=== PATIENT | female | born 1950 | race Caucasian/White ===

== ENCOUNTER 2017-11-14 21:03 | Observation (INO) | payer MEDICARE, OTHER ==
[~2017-11-14] VITALS: Ht 167.6 cm; Wt 52.0 kg
[~2017-11-14 21:03] MED LIST: NO MEDS; PATANOL0.1 % OP; PENICILLN VK500 MG OR; ULTRAM50 MG OR
--- NOTE | 2017-11-14 21:09 | NUR ---
PT TO ROOM PER EMS
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
[2017-11-14 21:30] LABS: HEMOGLOBIN 12.5 g/dl (12.0-16.0); IMMATURE GRANULOCYTES 0.4 % (0.0-1.0); MEAN CELL VOLUME 94.1 fL CALC (80.0-100.0); MEAN CORPUSCULAR HGB 31.8 pG CALC (26.0-32.0); MEAN CORPUSCULAR HGB CONC 33.8 g/L CALC (32.0-36.0); NEUT# 4.97 thou/uL (2.00-7.15); RED BLOOD COUNT 3.93 mill/uL (4.20-5.60); RED CELL DISTRI WIDTH 11.9 % (11.5-15.5)
[2017-11-14 21:47] LABS: PROTHROMBIN TIME 11.4 SECONDS (9.0-12.5)
[2017-11-14 21:53] LABS: ALBUMIN 3.5 g/dL (3.2-5.0); ALKALINE PHOSPHATASE 69 u/l (38-126); ANION GAP 13 (6-22 (CALC)); BILIRUBIN, TOTAL 0.3 mg/dL (0.0-1.4); BUN 25 mg/dL (8-23); BUN/CREATININE RATIO 30 (12-20 (CALC)); CARBON DIOXIDE 25 mmol/l (22-30); CHLORIDE 107 mmol/l (95-108); CREATININE 0.8 mg/dL (0.5-1.0); ETHYL ALCOHOL 0 mg/dl (0-30); GFR > 60 ML/MIN (>=60 (CALC)); GFR FOR AFR.AMER. > 60 ML/MIN (>=60 (CALC)); POTASSIUM 3.4 mmol/l (3.5-5.1); SGOT/AST 14 u/l (9-36); SGPT/ALT 28 u/l (11-66); SODIUM 141 mmol/l (137-146); TOTAL PROTEIN 5.9 g/dL (6.3-8.2)
[2017-11-14 22:04] LABS: MYOGLOBIN 25 ng/mL (0 - 62)
--- NOTE | 2017-11-14 22:56 | NUR ---
Pt resting comfortably at this time. blanket and pillow. Appears to be sleeping.
--- NOTE | 2017-11-15 00:20 | NUR ---
Pt transported to room 272.
--- NOTE | 2017-11-15 00:25 | NUR ---
PT ARRIVED TO THE FLOOR VIA STRETCHER WITH ER NURSE. PT AMBLUATED TO SCALE THEN TO BED. VITAL SIGNS OBTAINED. PT ORIENTED TO ROOM AND CALL LIGHT SYSTEM. PT DENIES ANY PAIN OR DIZZINESS. RESP EVEN AND UNLABORED. TELE IN PLACE. LUNGS CLEAR. ABD SOFT; ACTIVE BOWEL SOUNDS. PT STATES LAST BM WAS YESTERDAY. PEDAL PULSES PALPATED BILAT. IV LFA PATENT; FLUSHED WITHOUT DIFFICULTY. SAFETY PRECAUTIONS REINFORCED. FREQUENT ROUNDS MADE. CALL LIGHT WITHIN REACH.
[2017-11-15 00:30] VITALS: BP 112/67
--- NOTE | 2017-11-15 04:30 | NUR ---
ASSESSMENT UNCHNAGED; RESP EVEN AND UNLABORED. IV PATENT; NO REDNESS OR EDEMA NOTED. TELE IN PLACE. CALL LIGHT WITHIN REACH.
[2017-11-15 05:00] VITALS: BP 113/69
[2017-11-15 05:03] VITALS: BP 128/78
[2017-11-15 06:25] LABS: HEMATOCRIT 35.8 % (37.0-47.0); MEAN CELL VOLUME 96.2 fL CALC (80.0-100.0); MEAN CORPUSCULAR HGB 32.3 pG CALC (26.0-32.0); MEAN CORPUSCULAR HGB CONC 33.5 g/L CALC (32.0-36.0); RED BLOOD COUNT 3.72 mill/uL (4.20-5.60); RED CELL DISTRI WIDTH 12.2 % (11.5-15.5)
[2017-11-15 06:26] LABS: URINE BILIRUBIN - DIPSTICK NEGATIVE (NEGATIVE); URINE BLOOD DIPSTICK NEGATIVE (NEGATIVE); URINE COLOR YELLOW; URINE GLUCOSE - DIPSTICK NEGATIVE (NEGATIVE); URINE KETONE NEGATIVE (NEGATIVE); URINE LEUK ESTERASE NEGATIVE (NEGATIVE); URINE NITRITE - DIPSTICK NEGATIVE (Negative); URINE PROTEIN - DIPSTICK NEGATIVE (NEG-TRACE); URINE UROBILINOGEN - DIPSTICK 0.2 E.U./dL (0.2)
[2017-11-15 06:27] LABS: URINE CLARITY CLEAR
[2017-11-15 06:32] LABS: BARBITURATES NEGATIVE (NEGATIVE); COCAINE POSITIVE (NEGATIVE); METHADONE NEGATIVE (NEGATIVE); OXCYCODONE NEGATIVE (NEGATIVE); TETRAHYDROCANNABIONOL POSITIVE (NEGATIVE); TRICYLIC ANTIDEPRESSANTS NEGATIVE (NEGATIVE)
[2017-11-15 06:38] LABS: BUN 16 mg/dL (8-23); BUN/CREATININE RATIO 26 (12-20 (CALC)); CALCULATED LDLCHOLESTEROL 54 mg/dL (62-129 (CALC)); CARBON DIOXIDE 24 mmol/l (22-30); CHLORIDE 111 mmol/l (95-108); CHOLESTEROL HDL RATIO 2.1 (<4.4 (CALC)); CREATININE 0.6 mg/dL (0.5-1.0); GFR > 60 ML/MIN (>=60 (CALC)); GFR FOR AFR.AMER. > 60 ML/MIN (>=60 (CALC)); HDL CHOLESTEROL 66 mg/dL (>=40); SODIUM 141 mmol/l (137-146); TOTAL CHOLESTEROL 137 mg/dl (0-199); TOTAL TRIGLYCERIDES 82 mg/dl (30-149); VLDL CHOLESTROL 16 mg/dl (1-41 (CALC))
[2017-11-15 06:40] LABS: ANION GAP 10 (6-22 (CALC)); POTASSIUM 4.1 mmol/l (3.5-5.1)
--- NOTE | 2017-11-15 07:00 | NUR ---
BEDSIDE REPORT RECEIVED BY MIKA. PT IS SLEEPING IN LEFT SIDE WITH NO S/S OF DISTRESS NOTED. CALL LIGHT IN REACH.
[2017-11-15 07:33] VITALS: BP 109/73
--- NOTE | 2017-11-15 08:00 | NUR ---
ASSESSMENT DONE AND TELE IN PLACE. RESPS EVEN AND UNLABORED. NS AT 80ML/HR INFUSING WELL. PT DENIES PAIN AT THIS TIME. SAFETY PRECAUTIONS REINFORCED AND CALL LIGHT IN REACH.
--- NOTE | 2017-11-15 11:49 | NUR ---
DR. KENNEY AT BEDSIDE TO ASSESS PT AT THIS TIME.
--- NOTE | 2017-11-15 12:51 | NUR ---
Discharge instructions given. Patient verbalizes understanding of same. Discharged in stable condition via Wheelchair to Home with staff. All belongings sent with pt.
== END 2017-11-15 12:52 | disposition home or self-care (01) ==
LOC: ED 21:03 → ED-I 22:35 → ED 23:01 → MS2 23:02
PROVIDERS: Emergency Medicine; ADMIT Internal Medicine; ATTEND Internal Medicine
DX: R07.9 Chest pain, unspecified (principal); R55 Syncope and collapse; J45.909 Unspecified asthma, uncomplicated; F12.90 Cannabis use, unspecified, uncomplicated; F14.90 Cocaine use, unspecified, uncomplicated

== ENCOUNTER 2018-08-30 11:38 | Emergency (ER) | payer MEDICARE, MEDICAID ==
[~2018-08-30] VITALS: Ht 167.6 cm; Wt 51.0 kg
[2018-08-30] MEDS ORDERED: TRAMADOL HYDROC50 MG PO (13:36)
[2018-08-30] MEDS ORDERED: KEFLEX500 M1 PO (13:36)
[2018-08-30 14:09] VITALS: BP 140/73
== END 2018-08-30 14:10 | disposition home or self-care (01) ==
LOC: ED 11:38
DX: S61.432A Puncture wound without foreign body of left hand, initial encounter (principal); L08.9 Local infection of the skin and subcutaneous tissue, unspecified; M19.90 Unspecified osteoarthritis, unspecified site; J45.909 Unspecified asthma, uncomplicated; W22.09XA Striking against other stationary object, initial encounter; Y93.H1 Activity, digging, shoveling and raking; Y92.007 Garden or yard of unspecified non-institutional (private) residence as the place of occurrence of the external cause; Y99.9 Unspecified external cause status

== ENCOUNTER 2019-07-28 | Day surgery (SDC) | payer MEDICARE, MEDICAID ==
[~2019-07-28] MED LIST changes: +ACETAMINOPHEN PO; +GLUCOS/CHON2 PO; +IRON (FERROUS S50 MG PO; +KEFLEX500 M1 PO; +MULTIVITAMI1 PO; +TRAMADOL HYDROC50 MG PO; +VIT B COMPLEX PO; +VITAMIN B-COMPLEX PO; +VITAMIN C500 M6 PO; +VITAMIN D PO; +VITAMIN D-31000 UNIT PO
[2019-07-28 09:21] LABS: BARBITURATES NEGATIVE (NEGATIVE); COCAINE POSITIVE (NEGATIVE); METHADONE NEGATIVE (NEGATIVE); TETRAHYDROCANNABIONOL POSITIVE (NEGATIVE); TRICYLIC ANTIDEPRESSANTS NEGATIVE (NEGATIVE)
[2019-07-28 09:22] LABS: OXCYCODONE NEGATIVE (NEGATIVE)
== END 2019-07-28 09:30 | disposition home or self-care (01) ==
PROVIDERS: Surgery
DX: K92.1 Melena (principal); R82.5 Elevated urine levels of drugs, medicaments and biological substances; Z53.09 Procedure and treatment not carried out because of other contraindication